=== PATIENT | female | born 1950 | race Two or more races ===

== ENCOUNTER 2025-03-10 23:18 | Inpatient (IN) | payer OTHER, MEDICAID ==
[~2025-03-10] VITALS: Ht 165.1 cm; Wt 106.6 kg
--- NOTE | 2025-03-10 23:56 | ED.PDOC ---
History of Present Illness HPI Comments 75 y/o F is BIBA for c/o left knee pain s/p mechanical fall and injury. Per EMS report, patient has a history of chronic weakness from the waist down, pedal edema, and leg cellulitis. Today, patient fell onto her knees after failing to grab the toilet handle when going to the bathroom, this evening. Other si gnificant history includes stage IV breast cancer and hypothyroidism. Patient denies any additional injuries, lost of consciousness, swelling, or further associated symptoms. Time Seen by MD: 23:40 Reviewed Notes: Nurses Notes, Medications, Allergies Allergies: Coded Allergies: NO KNOWN ALLERGIES (Unverified , 03/11/25) Information Source: Patient Mode of Arrival: EMS Severity: Moderate Timing: Hours Duration: Since onset Prehospital treatment: None Past Medical History PAST MEDICAL HISTORY: Cancer (breast cancer stage IV ), Thyroid Past Medical History (Other): chronic bilateral lower extremity cellulitis, edema, and weakness Surgical History: Denies all surgeries GROUP ROOMS COORDINATOR History: Denies all GROUP ROOMS COORDINATOR Hx Family History Family History: Unknown Social History Smoker: Non-Smoker Alcohol: Denies ETOH Use Drugs: Denies Drug Use Lives In: Home All Other Systems: Reviewed and Negative (Comprehensive systems review obtained and negative except for what is stated in the HPI.) Physical Exam General Appearance: No Apparent Distress, Normal HEENT: Normal ENT Inspection, Pharynx Normal, TMs Normal Neck: Full Range of Motion, Non-Tender, Normal, Normal Inspection Respiratory: Chest Non-Tender, Lungs Clear, No Accessory Muscle Use, No Respiratory Distress, Normal Breath Sounds Cardiovascular: No Edema, No JVD, No Murmur, No Gallop, Normal Peripheral Pulses, Regular Rate/Rhythm Breast Exam: Deferred Gastrointestinal: No Organomegaly, Non Tender, No Pulsatile Mass, Normal Bowel Sounds, Soft Genitalia: Deferred Pelvic: Deferred Rectal: Deferred Extremities: Leg edema (2+ pitting ), No calf tenderness, Normal capillary refill, Normal range of motion, No pedal edema, Tender (left knee ) Musculoskeletal : Apperance: Normal Neurologic: Alert, traffic routing engineer II-XII nml as Tested, No Motor Deficits, Normal Affect, Normal Mood, No Sensory Deficits Cerebellar Function: Normal Reflexes: Normal Skin: Dry, Normal Color, Warm Lymphatic: No Adenopathy Was a procedure done? Was a procedure done?: No Differential Dx Considerations may include: fractures, dislocations, contusions, sprain, among others X-Ray, Labs, Meds, VS Vital Signs Date Time Temp Pulse Resp B/P (MAP) Pulse Ox O2 Delivery O2 Flow Rate FiO2 03/11/25 00:56 97.9 98 15 143/65 (91) 93 97.9 03/10/25 23:35 97.2 86 16 135/92 (106) 99 97.2 Time of 1ST Reevaluation: 00:10 Reevaluation 1ST: Unchanged Time of 2ND Reevaluation: 01:00 Reevaluation 2ND: Improved Patient Education/Counseling: Diagnosis, Treatment, Prognosis, Need For Follow Up Family Education/Counseling: No Family Present Comments pt feels better, her xray is unremarkable. however, she lives with an elderly , who does not drive at night, and there are no one to pick her up at night. we will let her sleep here and arrange for transportation in AM Additional Information Previous visits reviewed: N/A The following tests were ordered, and results were reviewed by me: left knee X- ray Additional Information was gathered from interviewing the following independent historians: EMS I reviewed and agreed with the following test results read by other providers: left knee X-ray I discussed treatment and results with medical personnel and: patient SEPSIS Sepsis Screen Physician Orders L Knee 2v Xray (03/10/25 23:47) Vital Signs Date Time Temp Pulse Resp B/P (MAP) Pulse Ox O2 Delivery O2 Flow Rate FiO2 03/11/25 00:56 97.9 98 15 143/65 (91) 93 97.9 03/10/25 23:35 97.2 86 16 135/92 (106) 99 97.2 Departure 1 Departure Time of Disposition: 01:01 Impression: Primary Impression: Falling Additional Impression: Knee contusion Qualified Codes: S80.01XA - Contusion of right knee, initial encounter Disposition: HOME / SELF CARE / HOMELESS Condition: Good Discharged With: Self Critical Care Note Critical Care Time?: No Stability Stability form required: No Heart Score Heart Score: Heart Score Response (Comments) Value History N/A 0 EKG N/A 0 Age N/A 0 Risk Factors N/A 0 Troponin N/A 0 Total 0 I personally scribed for FRANCESCO DE MD ([email or web address]) on 03/10/25 at 23:56. Electronically submitted by Gio Shearer ([email or web address]). FRANCESCO DE MD Mar 10, 2025 23:56
[2025-03-11] MEDS: HYDROcodone-ACET 5/325MG TAB PO ONE
--- NOTE | 2025-03-11 00:50 | DVH ---
CLINICAL INDICATION: fall TECHNIQUE: XY L KNEE 2V XRAY Comparison: None FINDINGS/IMPRESSION: : There is no evidence of acute fracture or dislocation. Osteoarthritic related medial tibiofemoral and patellofemoral compartment narrowing and osteophytosi s. Soft tissues are unremarkable.
[2025-03-11 00:57] VITALS: PULSE 98; RESP 15; O2SAT 95
[2025-03-11 19:50] VITALS: RESP 18; O2SAT 95
--- NOTE | 2025-03-11 22:41 | ED.PDOC ---
Departure 1 Departure Time of Disposition: 22:40 (Patient is unable to care for themselves. We will admit patient for further workup and expert consultation) Impression: Primary Impression: Falling Additional Impression: Knee contusion Qualified Codes: S80.01XA - Contusion of right knee, initial encounter Disposition: ADMITTED INPATIENT Admit to: Med Surg Condition: Serious Discharged With: Self NALLELY FARLEY MD Mar 11, 2025 22:41
[2025-03-12] VITALS (8 sets, daily range): BP systolic 116–148; BP diastolic 62–78; PULSE 78–88; RESP 16–93; TEMP 97.5–99.3; O2SAT 79–98
[2025-03-12] MEDS ORDERED: ACETAMINOPHEN 325 MG TAB PO PRN (01:15)
--- NOTE | 2025-03-12 01:19 | DVHHP2 ---
History of Present Illness History of Present Illness Patient is 75 years old female with a past medical history of hypothyroidism, rRight breast carcinoma stage IV diagnosed few months before-no treatment got yet as per patient, diabetes mellitus type 2, bilateral lower extremity cellulitis was brought in to the ER due to fall. As per patient she is uses walker to walk around and she went to use the restroom when her legs gave up and she fell in the restroom. Patient reported hurting her both knee. But denied head injury or loss of consciousness. Patient reported she was recently admitted at [facility] from February 20 to February 28, 2025 for leg pain. Patient also reports she was on home health with [facility] and had antibiotics for almost 9-10 days. Patient denied any chest pain no shortness a breath or dizziness or fever cough. 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 Cardiovascular- deny acute chest pain or shortness of breath or cough or palpitation Respiratory denies cough or short of breath or wheezing Gastrointestinal- denies any rectal bleeding, nausea or vomiting Musculoskeletal- knee pain Neurological- denies acute dysarthria, dysphagia, change in vision Psychiatry- denies depression or SI or HI Skin- denies acute rash or purpura Allergies: Coded Allergies: NO KNOWN ALLERGIES (Unverified , 03/11/25) Medications Current Medications Medications Dose Ordered Sig/Debbie Route Start Time Stop Time Status Last Admin Dose Admin Sodium Chloride 10 ml Q8HR IV 03/12/25 06:00 UNV Enoxaparin Sodium 40 mg DAILY SC 03/12/25 10:00 UNV Acetaminophen 650 mg Q6HP PRN PO 03/12/25 01:15 UNV Exam Vital Signs Vital Signs Date Time Temp Pulse Resp B/P (MAP) Pulse Ox O2 Delivery O2 Flow Rate FiO2 03/11/25 23:52 97.2 80 18 117/54 (75) 98 97.2 03/11/25 19:50 Nasal Cannula* 3 32 Exam General examination-not in acute distress HEENT- PEERLA, no acute nasal discharge Cardiovascular- S1-S2 audible, rate and rhythm regular, no murmur Respiratory- CTAB, no wheeze or rhonchi Gastrointestinal-nontender, bowel sound+. Nondistended Musculoskeletal-no acute joint swelling or tenderness or redness Lower extremity- bilateral lower extremity redness, Neurological- cranial nerves intact, no acute dysarthria or dysphagia Psychiatry- denies depression or SI or HI Skin- no acute rash or purpura Assessment/Plan Assessment/Plan Assessment and Plan # DELMY likely due to VMN -serum creatinine 1.2, BUN 31 -avoid dehydration and nephrotoxic drugs -oral hydration #Fall -x-ray left knee negative for fracture, revealed osteoarthritis -continue pain medication as prescribed # acute hypoxic respiratory failure likely due to CHF systolic versus diastolic -chest x-ray cardiomegaly -BNP 213 -pending echo 2D c/sw lasix 20 mg iv bid #Bilateral knee pain -continue pain medication as prescribed #Bilateral lower extremity cellulitis -ordered clindamycin 300 mg iv q.8h -Doppler study of the lower extremity -negative for DVT #Hypothyroidism - TSH-6.77 -continue levothyroxine 200 mg q.a.m. 30 minutes before breakfast #Carcinoma of the right breast Follow up Oncology outpatient #Obesity -patient was counseled about the effect of obesity on health, with reduction, healthy diet, physical activity as tolerated PCP-patient could not mentioned the name of the PCP Goals of care, Code status ; discussed with >15 minutes PUD prophylaxis: Pantoprazole DVT prophylaxis: Lovenox Plan discussed with Dr. Craig , nursing staff, Total time spent on patient evaluation, chart review, assessment and plan, discussion discussion >35 minutes Plan discussed with: Patient, Other (RN) My Orders Orders - YVETTE BROWN RESIDENT Procedure Category Date Status Time Admit ADMIT 03/12/25 Transmitted 01:04 Code Status CODE 03/12/25 Transmitted 01:04 Sodium Chloride Lock PHA 03/12/25 Logged (Saline Lock Ns) 06:00 Enoxaparin Sodium PHA 03/12/25 Logged (Lovenox) 10:00 Complete Blood Count LAB 03/13/25 Verified 04:00 Comprehensive LAB 03/13/25 Verified Metabolic Panel 04:00 Acetaminophen Tablet PHA 03/12/25 Logged (Tylenol Tablet) 01:15 Notify Of Changes ASHLEY 03/12/25 In Process From Base 01:04 Complete Blood Count LAB 03/12/25 Logged 01:08 Comprehensive LAB 03/12/25 Logged Metabolic Panel 01:08 Thyroid Stimulating LAB 03/12/25 Logged Hormone 01:08 B-Type Natriuretic LAB 03/12/25 Logged Peptide 01:08 Chest Xray 1 View XY 03/12/25 Logged 01:08 Wound Culture W/ Gs ALEYDA 03/12/25 Logged 01:08 Urine Bacterial ALEYDA 03/12/25 Logged Culture 01:08 Urinalysis LAB 03/12/25 Logged 01:08 Date of Service: Mar 12, 2025 Billing Provider: CHANA CRAIG MD Common Visit Codes: 62801-ZJJOBRE INP/OBS CARE (HIGH) Secondary Visit Codes: 95100-TYVLLKLG CARE PLAN 30 MINUTES YVETTE BROWN RESIDENT Mar 12, 2025 01:19
[2025-03-12 01:41] LABS: Hematocrit 35.3 % (36.0-46.0); Hemoglobin 11.8 g/dL (12.2-16.2); Mean Corpuscular Hemoglobin 31.9 pg (28.0-32.0); Mean Corpuscular Volume 95.2 fL (80.0-100.0); Nucleated Red Blood Cells % 0.1 %
--- NOTE | 2025-03-12 01:52 | DVH ---
CHEST RADIOGRAPH Indication: PNA Technique: Single frontal view of the chest was obtained COMPARISON: None FINDINGS: Lines and Tubes: None Lungs: Clear Pleura: No effusion. No pneumothorax. Cardiomediastinal contours: Cardiomegaly. Atherosclerotic vascular calcifications. Bones: Unremarkable IMPRESSION: 1. No acute disease. 2. Cardiomegaly.
[2025-03-12 02:09] LABS: Alanine Aminotransferase 25 U/L (7-40); Alkaline Phosphatase 75 U/L (46-116); Calcium 9.3 mg/dL (8.7-10.4); Chloride 102 mmol/L (98-107)
[2025-03-12 02:10] LABS: Albumin 3.6 g/dL (3.2-4.8); Anion Gap 5 (5-15); BUN/Creatinine Ratio 25.8 (10.0-20.0); Bilirubin, Total 0.4 mg/dL (0.2-1.0); Potassium 4.1 mmol/L (3.5-5.1); Sodium 139 mmol/L (136-145); Total Protein 6.7 g/dL (5.7-8.2)
[2025-03-12] MEDS: PANTOPRAZOLE 40 MG TAB PO ONE (02:12)
[2025-03-12 02:17] LABS: Blood Urea Nitrogen 31 mg/dL (9-23); Carbon Dioxide 32 mmol/L (20-31); Glucose 122 mg/dL (74-106)
--- NOTE | 2025-03-12 02:47 | DVH ---
Bilateral lower extremity venous duplex Clinical History: B/L Leg swelling Comparison: None Technique: Duplex Doppler evaluation of the deep venous systems of both lower extremities from the common femora l veins to the popliteal veins including color Doppler and spectral/pulsed waveform analysis was perf ormed. Findings: RIGHT SIDE: The common femoral vein demonstrates appropriate compressibility and waveform variability. There is compressibility/patency of the great saphenous vein at the proximal thigh. The femoral vein demonstrates appropriate compressibility and waveform variability. The deep femoral vein demonstrates appropriate compressibility and waveform variability. The popliteal vein demonstrates appropriate compressibility and waveform variability. There is normal compressibility at the tibioperoneal trunk. LEFT SIDE: The common femoral vein demonstrates appropriate compressibility and waveform variability. There is compressibility/patency of the great saphenous vein at the proximal thigh. The femoral vein demonstrates appropriate compressibility and waveform variability. The deep femoral vein demonstrates appropriate compressibility and waveform variability. The popliteal vein demonstrates appropriate compressibility and waveform variability. There is normal compressibility at the tibioperoneal trunk. Impression: 1. No right or left femoropopliteal venous thrombosis.
[2025-03-12] MEDS: CLINDAMYCIN 300MG IV 50 ML IV ONE (03:00)
[2025-03-12 03:53] LABS: Urine Protein, UAD TRACE (Negative)
[2025-03-12 04:12] LABS: Amphetamine Screen, Urine Neg (NEGATIVE); Barbiturate Scree,Urine Neg (NEGATIVE); Benzodiazephine Screen, Urine Neg (NEGATIVE); Cannabinoid Screen, Urine Neg (NEGATIVE); Cocaine Screen, Urine Neg (NEGATIVE); Opiate Scree,Urine Neg (NEGATIVE); Phencyclidine Screen, Urine Neg (NEGATIVE)
--- NOTE | 2025-03-12 04:33 | DVH ---
CLINICAL INDICATION: fall, pain TECHNIQUE: XY R KNEE 2V XRAY Comparison: XY L KNEE 2V XRAY on DOS: 03/11/25 FINDINGS/IMPRESSION: : There is no evidence of acute fracture or dislocation. Moderate medial tibiofemoral and patellofemoral compartment narrowing with associated osteophytosis r elated to osteoarthritic degenerative change. Soft tissues are unremarkable.
[2025-03-12] MEDS: SODIUM CHLOR 0.9% PF (SALINE LOCK) 10ML VIAL/SYR IV SCH (05:34)
[2025-03-12] MEDS: LEVOTHYROXINE SODIUM 100 MCG TAB PO SCH (05:34)
[2025-03-12] MEDS: FUROSEMIDE 20 MG/2 ML VIAL IV ONE (08:15)
[2025-03-12] MEDS: ENOXAPARIN SOD 40 MG/0.4 ML SYRINGE SC SCH (09:36)
[2025-03-12 10:04] LABS: Hepatitis B Surface Antigen Negative (Negative)
--- NOTE | 2025-03-12 10:18 | DVH ---
CLINICAL INFORMATION: Fall injury. TECHNIQUE: Axial imaging was obtained through the brain without contrast. Coronal and sagittal reform atted images were obtained, reviewed, and stored. Images were reviewed in brain and bone windows. Al l CT scans at this medical facility are performed using dose modulation techniques as appropriate to a performed exam including the following: Automated exposure control was utilized; adjustment of the MA and/or KV according to patient size; and use of iterative reconstruction technique. CTDIvol = 65.3 7 mGy DLP = 1286.56 mGy-cm COMPARISON: None FINDINGS: There is no acute intracranial hemorrhage. No mass effect or midline shift. Scattered areas of hypoattenuation are seen in the periventricular and subcortical white matter, which are nonspecif ic but most likely sequelae of small vessel ischemic disease. There is encephalomalacia in the right occipital lobe, , anterior right frontal lobe, right frontoparietal region, and left frontoparietal r egion. The ventricles and sulci are within normal limits in size for age. Basal cisterns are patent. Postsurgical changes of right frontoparietal craniotomy. Paranasal sinuses and mastoid air cells are clear. IMPRESSION: 1. No CT evidence of acute intracranial abnormality. 2. Multifocal areas of encephalomalacia, with chronic appearance, and additional nonacute findings as detailed above.
[2025-03-12 10:25] LABS: Hepatitis C Antibody Negative (Negative)
[2025-03-12] MEDS: CLINDAMYCIN 300MG IV 50 ML IV SCH (14:07)
[2025-03-12] MEDS: FUROSEMIDE 20 MG/2 ML VIAL IV SCH (17:48)
[2025-03-13] VITALS (8 sets, daily range): BP systolic 105–137; BP diastolic 53–75; PULSE 76–82; RESP 16–18; TEMP 97–98.9; O2SAT 94–96
[2025-03-13] MEDS: PANTOPRAZOLE 40 MG TAB PO SCH (05:13)
[2025-03-13 07:09] LABS: Hematocrit 35.7 % (36.0-46.0); Hemoglobin 12.1 g/dL (12.2-16.2); Mean Corpuscular Hemoglobin 32.1 pg (28.0-32.0); Mean Corpuscular Volume 94.9 fL (80.0-100.0); Nucleated Red Blood Cells % 0.1 %
[2025-03-13 07:23] LABS: Alanine Aminotransferase 21 U/L (7-40); Albumin 3.4 g/dL (3.2-4.8); Alkaline Phosphatase 70 U/L (46-116); Anion Gap 5 (5-15); BUN/Creatinine Ratio 18.7 (10.0-20.0); Bilirubin, Total 0.4 mg/dL (0.2-1.0); Blood Urea Nitrogen 20 mg/dL (9-23); Calcium 9.5 mg/dL (8.7-10.4); Chloride 102 mmol/L (98-107); Potassium 4.1 mmol/L (3.5-5.1); Sodium 141 mmol/L (136-145); Total Protein 6.4 g/dL (5.7-8.2)
[2025-03-13 07:24] LABS: Carbon Dioxide 34 mmol/L (20-31); Glucose 153 mg/dL (74-106)
--- NOTE | 2025-03-13 14:06 | DVHPN2 ---
Subjective I am assuming the care of the patient from today onwards. Patient is here for status post fall currently complaining of right knee pain. Took noted patient is a very poor historian. 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 Medications Current Medications Medications Dose Ordered Sig/Debbie Route Start Time Stop Time Status Last Admin Dose Admin Sodium Chloride 10 ml Q8HR IV 03/12/25 06:00 03/13/25 05:13 10 ML Enoxaparin Sodium 40 mg DAILY SC 03/12/25 10:00 03/13/25 10:00 40 MG Acetaminophen 650 mg Q6HP PRN PO 03/12/25 01:15 Clindamycin Phosphate 50 ml @ 50 mls/hr Q8HR IV 03/12/25 14:00 03/13/25 13:09 50 MLS/HR Levothyroxine Sodium 200 mcg QAM@0600 PO 03/12/25 06:00 03/13/25 05:13 200 MCG Pantoprazole Sodium 40 mg DAILY@0600 PO 03/13/25 06:00 03/13/25 05:13 40 MG Furosemide 20 mg BIDD IV 03/12/25 18:00 03/13/25 05:14 20 MG Laboratory Results Laboratory Tests 03/13/25 06:41 Chemistry Test 03/13/25 06:41 Albumin 3.4 g/dL (3.2-4.8) Calcium Level 9.5 mg/dL (8.7-10.4) Total Protein 6.4 g/dL (5.7-8.2) LFT Test 03/13/25 06:41 Alanine Aminotransferase (ALT) 21 U/L (7-40) Alkaline Phosphatase 70 U/L (46-116) Aspartate Amino Transferase (AST) 33 U/L (13-40) Total Bilirubin 0.4 mg/dL (0.2-1.0) Urinalysis Test 03/12/25 01:56 Urine Color Light-yellow (Yellow) Urine Clarity Turbid (Clear) H Urine pH 5.5 (5.0-9.0) Urine Specific [place] 1.019 (1.001-1.035) Urine Protein Trace (Negative) H Urine Ketones Negative (Negative) Urine Blood Negative /uL (Negative) Urine Nitrite Negative (Negative) Urine Bilirubin Negative (Negative) Urine Urobilinogen 2 mg/dL (Negative) H Urine Leukocyte Esterase Negative /uL (Negative) Urine RBC 2 /hpf (0 - 4) Urine Microscopic WBC 5 /HPF (0-5) Urine Squamous Epithelial Cells Few /hpf (<5) Urine Uric Acid Crystals Mod /hpf (None Seen) Urine Bacteria Few /hpf (None Seen) H Urine Glucose Normal mg/dL (Normal) Microbiology Microbiology Date/Time Source Procedure Growth Status 03/12/25 01:56 Voided Urine Urine Culture - Preliminary Resulted Assessment/Plan Assessment/Plan 75-year-old female with a known history of hypothyroidism, recent diagnosis of right breast cancer suspected stage IV, diabetes mellitus type 2 who initially presented to the hospital with a status post fall found to have 1. Status post fall 2. Bilateral lower extremity cellulitis 3. Acute kidney injury suspected secondary to vasomotor nephropathy 4. Hypothyroidism 5. Diabetes mellitus type 2 6. Right breast cancer stage IV 7. Bilateral knee pain and right ankle pain -obtain knee and ankle x-ray, add insulin Lantus because of hemoglobin A1c more than 10. Continue IV antibiotics -physical therapy evaluation and treatment. - Plan discussed with: Patient My Orders Orders - MARVIN CARNES MD Procedure Category Date Status Time Free T4 (Free LAB 03/13/25 In Process Thyroxine) 13:53 Free T3 LAB 03/13/25 In Process 13:53 Date of Service: Mar 13, 2025 Billing Provider: MARVIN CARNES MD Common Visit Codes: NOT BILLABLE MARVIN CARNES MD Mar 13, 2025 14:06
[2025-03-13 14:17] LABS: Free T3 2.31 pg/mL (2.3-4.2); Free T4 (Free Thyroxine) 1.15 ng/dL (0.89-1.76)
[2025-03-13] MEDS: InsuLIN REG 1unit/0.01ml Soln (100units/ml) SC ONE (14:30)
[2025-03-13] MEDS: DEXTROSE (50%) 50ML SYRG IV ONE (14:30)
[2025-03-13] MEDS: ACCU-CHEK COMFORT CURVE STRIP VI ONE (14:30)
--- NOTE | 2025-03-13 16:08 | DVH ---
EXAM: XY R ANKLE 2 VIEW XRAY CLINICAL HISTORY: right ankle pain and weakness COMPARISON: None TECHNIQUE: XY R ANKLE 2 VIEW XRAY Findings/Impression: 2 views of the right ankle. There is no evidence of an acute fracture, dislocation, blastic, or lytic lesions. Chronic fracture d eformity of the distal fibula. Screw fixation of the medial malleolus. No joint effusion. Mild diffuse soft tissue edema.
--- NOTE | 2025-03-13 18:03 | DVHSR ---
APPROVED REPORT EXAM: LIMITED Two-dimensional and M-mode echocardiogram with Doppler and color Doppler. Blood Pressure: 148/78 mmHg INDICATION Dyspnea ?CHF RISK FACTORS Obesity: Height: 5'5, Weight: 247 DIMENSIONS LVDd3.9 (3.8-5.7cm)LA (2D)3.9 (1.9-4.0cm)Aortic Root3.4 (2.0-3.7cm) LVDs2.7 (2.5-4.0cm)LA (MM) (1.9-4.0cm)Aortic Cusp Exc1.6 (1.5-2.0cm) EF (%) 55.0 (55-70%)Rt. Atrium3.3 (1.9-4.0cm)Asc. Aorta cm IVSd1.4 (0.7-1.1cm)RV (D) (1.8-2.4cm) PWd0.9 (0.7-1.1cm) Mitral Valve MitralMitral Stenosis E wave0.83m/sMV Mean GR.mmHg A wave1.15m/sMV Peak GR.mmHg E/A ratio0.72D MVAcm2 DECEL [id number] 1/2 Timems Aortic Valve Aortic ValveAortic Stenosis V11.28m/Tessa Mean GR.6mmHg V21.65m/Tessa Peak GR.11mmHg LVOT Diameter2.1 (1.8-2.4cm)Doppler AVA2.69cm2 Pulmonic Valve V21.08m/s Tricuspid Valve TR Velocity2.60m/s [id number] Other Information Quality : LimitedTechnically LimitedRhythm : Technically limited study due to body habitus.patient position. Conclusion LVEF 60-65%, mild LVH RV normal Valves not well visualized, likely grossly normal
[2025-03-13] MEDS ORDERED: DEXTROSE (50%) 50ML SYRG IV PRN (19:15)
[2025-03-13] MEDS: ACCU-CHEK COMFORT CURVE STRIP VI SCH (22:00)
[2025-03-13] MEDS: InsuLIN REG 1unit/0.01ml Soln (100units/ml) SC SCH (22:00)
[2025-03-14] VITALS (8 sets, daily range): BP systolic 97–133; BP diastolic 43–81; PULSE 69–83; RESP 16–19; TEMP 97.9–98.5; O2SAT 91–95
[2025-03-14] MEDS: PANTOPRAZOLE 40 MG TAB PO SCH (05:54)
--- NOTE | 2025-03-14 16:05 | DVHDS2 ---
Discharge Summary Date of Admission Mar 12, 2025 at 01:04 Date of Discharge: Mar 14, 2025 Labs/Diagnostic Data: Laboratory Results Test 03/14/25 12:32 03/13/25 06:41 03/12/25 02:18 03/12/25 01:56 POC Glucose 175 mg/dl (70-106) White Blood Count 6.6 10^3/uL (4.4-10.8) Red Blood Count 3.76 10^6/uL (4.0-5.20) Hemoglobin 12.1 g/dL (12.2-16.2) Hematocrit 35.7 % (36.0-46.0) Mean Corpuscular Volume 94.9 fL (80.0-100.0) Mean Corpuscular Hemoglobin 32.1 pg (28.0-32.0) Mean Corpuscular Hemoglobin Concent 33.8 g/dL (32.0-36.0) Red Cell Distribution Width 13.0 % (11.8-14.3) Platelet Count 305 10^3/uL (140-450) Mean Platelet Volume 8.6 fL (6.9-10.8) Neutrophils (%) (Auto) 62.0 % (37.0-80.0) Lymphocytes (%) (Auto) 22.0 % (10.0-50.0) Monocytes (%) (Auto) 9.6 % (0.0-12.0) Eosinophils (%) (Auto) 5.3 % (0.0-7.0) Basophils (%) (Auto) 1.1 % (0.0-2.0) Neutrophils # (Auto) 4.1 10 ^3/uL (1.6-8.6) Lymphocytes # (Auto) 1.5 10 ^3/uL (0.4-5.4) Monocytes # (Auto) 0.6 10 ^3/uL (0-1.3) Eosinophils # (Auto) 0.3 10 ^3/uL (0-0.8) Basophils # (Auto) 0.1 10 ^3/uL (0-0.2) Nucleated Red Blood Cells 0.1 % Sodium Level 141 mmol/L (136-145) Potassium Level 4.1 mmol/L (3.5-5.1) Chloride Level 102 mmol/L (98-107) Carbon Dioxide Level 34 mmol/L (20-31) Anion Gap 5 (5-15) Blood Urea Nitrogen 20 mg/dL (9-23) Creatinine 1.07 mg/dL (0.550-1.02) Glomerular Filtration Rate Calc 54 mL/min (>90) BUN/Creatinine Ratio 18.7 (10.0-20.0) Serum Glucose 153 mg/dL (74-106) Calcium Level 9.5 mg/dL (8.7-10.4) Total Bilirubin 0.4 mg/dL (0.2-1.0) Aspartate Amino Transferase (AST) 33 U/L (13-40) Alanine Aminotransferase (ALT) 21 U/L (7-40) Alkaline Phosphatase 70 U/L (46-116) Total Protein 6.4 g/dL (5.7-8.2) Albumin 3.4 g/dL (3.2-4.8) Free Thyroxine (T4) Calculated 1.15 ng/dL (0.89-1.76) Free Triiodothyronine (T3) pg/mL 2.31 pg/mL (2.3-4.2) Vitamin B12 Level 337 pg/mL (211-911) Vitamin D 25-Hydroxy 31.9 ng/mL (30.0-100) Folic Acid 9.45 ng/mL (>5.38) Hepatitis B Surface Antigen Negative (Negative) Hepatitis C Antibody Negative (Negative) Urine Color Light-yellow (Yellow) Urine Clarity Turbid (Clear) Urine pH 5.5 (5.0-9.0) Urine Specific [place] 1.019 (1.001-1.035) Urine Protein Trace (Negative) Urine Ketones Negative (Negative) Urine Blood Negative /uL (Negative) Urine Nitrite Negative (Negative) Urine Bilirubin Negative (Negative) Urine Urobilinogen 2 mg/dL (Negative) Urine Leukocyte Esterase Negative /uL (Negative) Urine RBC 2 /hpf (0 - 4) Urine Microscopic WBC 5 /HPF (0-5) Urine Squamous Epithelial Cells Few /hpf (<5) Urine Uric Acid Crystals Mod /hpf (None Seen) Urine Bacteria Few /hpf (None Seen) Urine Glucose Normal mg/dL (Normal) Urine Opiates Screen Neg (NEGATIVE) Urine Fentanyl Screen Neg (NEGATIVE) Urine Barbiturates Screen Neg (NEGATIVE) Urine Phencyclidine Screen Neg (NEGATIVE) Urine Amphetamines Screen Neg (NEGATIVE) Urine Benzodiazepines Screen Neg (NEGATIVE) Urine Cocaine Screen Neg (NEGATIVE) Urine Cannabinoids Screen Neg (NEGATIVE) Test 03/12/25 01:28 Hemoglobin A1c 10.6 % A1C (<5.7) B-Type Natriuretic Peptide 213.25 pg/mL (0-100) Thyroid Stimulating Hormone (TSH) 6.77 uIU/mL (0.55-4.78) Other Laboratory Tests 03/13/25 06:41 Brief Hx & Hospital Course: 75-year-old female with a known history of hypothyroidism, recent diagnosis of right breast cancer suspected stage IV, diabetes mellitus type 2 who initially presented to the hospital with a status post fall found to have bilateral lower extremity knee pain with a right ankle pain. Patient underwent x-ray of the knees as well as right ankle which shows no evidence of any acute fracture. Patient's acute kidney has been resolved, patient does have mild cellulitis of the bilateral lower extremity, was treated with the IV antibiotics which will be switched to p.o. antibiotics. [facility] available. Condition at Discharge: Stable Final Diagnosis/Problems List 75-year-old female with a known history of hypothyroidism, recent diagnosis of right breast cancer suspected stage IV, diabetes mellitus type 2 who initially presented to the hospital with a status post fall found to have 1. Status post fall 2. Bilateral lower extremity cellulitis 3. Acute kidney injury suspected secondary to vasomotor nephropathy 4. Hypothyroidism 5. Diabetes mellitus type 2 6. Right breast cancer stage IV 7. Bilateral knee pain and right ankle pain Discharge Disposition: Long-Term Facility SNF Discharge Will this Physician continue t: No Discharge Instruct/Medications Diet: Cardiac 2g Na,low cholest Activity: See Comment Activity comment: With the physical therapy as tolerated Follow Up/Referral: Follow up with the PCP in 1-2 weeks Medications: Resume medication as reconciled Discharge Statement: "Patient was advised to return to the ER or call 911 if any headaches, dizziness, shortness of breath, chest pain, abdominal pain, bleeding, fevers, or worsening of medical condition. Patient was counseled about treatment plan, medications, possible side effects, patientverbalized understanding. All questions were answered to the best of my ability. This discharge took greater then 30 minutes in planning, reviewing documentation, counseling the patient, and discussing with other team members." ASSESSMENT ASSESSMENT Assessment 75-year-old female with a known history of hypothyroidism, recent diagnosis of right breast cancer suspected stage IV, diabetes mellitus type 2 who initially presented to the hospital with a status post fall found to have 1. Status post fall 2. Bilateral lower extremity cellulitis 3. Acute kidney injury suspected secondary to vasomotor nephropathy 4. Hypothyroidism 5. Diabetes mellitus type 2 6. Right breast cancer stage IV 7. Bilateral knee pain and right ankle pain Date of Service: Mar 14, 2025 Billing Provider: MARVIN CARNES MD Common Visit Codes: NOT BILLABLE MARVIN CARNES MD Mar 14, 2025 16:05
[2025-03-15 01:00] VITALS: BP 107/64; PULSE 72; RESP 18; TEMP 98.5; O2SAT 95
[2025-03-15 05:00] VITALS: BP 110/61; PULSE 79; RESP 18; TEMP 97.9; O2SAT 95
[2025-03-15 09:00] VITALS: BP 115/63; PULSE 74; RESP 16; TEMP 97.7; O2SAT 93
[2025-03-15 12:38] VITALS: BP 111/64; PULSE 74; RESP 17; O2SAT 93
[2025-03-15 13:00] VITALS: BP 111/64; PULSE 74; RESP 17; TEMP 98.4; O2SAT 93
== END 2025-03-15 15:40 | DRG 602 ==
LOC: ER 23:18 → EDBD 23:18 → OVERFLOW 03-12 01:04 → EAST 03-12 01:08
PROVIDERS: ADMIT Hospitalist; ATTEND Hospitalist
DX: L03.115 Cellulitis of right lower limb (principal); N17.0 Acute kidney failure with tubular necrosis; Z68.41 Body mass index [BMI] 40.0-44.9, adult; L03.116 Cellulitis of left lower limb; E66.9 Obesity, unspecified; E03.9 Hypothyroidism, unspecified; E11.9 Type 2 diabetes mellitus without complications; S80.01XA Contusion of right knee, initial encounter; I51.7 Cardiomegaly; Z85.3 Personal history of malignant neoplasm of breast; Y93.89 Activity, other specified; W18.39XA Other fall on same level, initial encounter; Y92.89 Other specified places as the place of occurrence of the external cause; Y99.8 Other external cause status
CPT/HCPCS: 36415; 70450; 71045; 73560; 73600; 80053; 80307; 81001; 82306; 82607; 82746; 82962; 83036; 83880; 84439; 84443; 84481; 85025; 86803; 87086; 87340; 93306; 93970; 97116; 97163; 97530; G0378; J1815; J3490